=== PATIENT | female | born 1990 | race American Indian/Alaskan Native ===

== ENCOUNTER 2016-11-28 09:51 | Emergency (ER) | payer SELFPAY ==
--- NOTE | 2016-11-28 10:52 | Emergency Department Report ---
Addendum entered and electronically signed by VANCE CAT PA 11/28/16 10:55 : Blank Doc - Documentation Documentation: Medical decision making: Patient seen by provider in triage area. Appropriate protocol activated and patient to main ED to be seen by physician. Original Note: Chief Complaint: Abdominal Pain Stated Complaint: STOMACH PAIN/14 WKS Time Seen by Provider: 11/28/16 10:43 - HPI History of Present Illness: Patient here complains abdominal pain with cramping to left lower pelvic area. She reports that she is 14 weeks . Denies any vaginal bleeding and reported watery clear vaginal discharge. Pain is 5-6 out of 10. She just moved to [place] and she does not have LMSW. No previous ultrasound for care. Denies any vomiting or diarrhea. Denies any fever or chills. Denies any urinary burning frequency or urgency. - ROS Review of Systems: All systems are negative unless stated in HPI above. - Exam Vital Signs: Vital Signs 11/28/16 10:18 Temperature 98.5 F Pulse Rate 86 Respiratory 22 Rate Blood Pressure 132/72 O2 Sat by Pulse 99 Oximetry Physical Exam: General: This is a 26-year-old female well-nourished well-developed nontoxic in appearance. CV: S1, S2. Regular rate and rhythm. GI: TTP LT LQ abdomen. NL bowel sounds. no cva tenderness MSE screening note: Focused history and physical exam performed. Due to findings the following was ordered: ED Disposition for MSE Condition: Stable Instructions: Abdominal Pain (ED)
[2016-11-28 11:17] LABS: Basophils % (Auto) 0.4 % (0.0-1.8); Eosinophils % (Auto) 0.6 % (0.0-4.3); Hematocrit 38.4 % (30.3-42.9); Hemoglobin 12.9 gm/dl (10.1-14.3); Mean Corpuscular HGB Conc 34 % (30-34); Mean Corpuscular Hemoglobin 31 pg (28-32); Mean Corpuscular Volume 91 fl (79-97); Platelet Count 317 K/mm3 (140-440); Red Blood Count 4.22 M/mm3 (3.65-5.03); White Blood Count 10.8 K/mm3 (4.5-11.0)
[2016-11-28 11:41] LABS: Alanine Aminotransferase 8 units/L (7-56); Albumin/Globulin Ratio 1.1 %; Alkaline Phosphatase 107 units/L (35-129); Bilirubin,Total 0.2 mg/dL (0.1-1.2); Blood Urea Nitrogen 6 mg/dL (7-17); Calcium 9.4 mg/dL (8.4-10.2); Carbon Dioxide 23 mmol/L (22-30); Glucose 88 mg/dL (65-100); Lipase 24 units/L (13-60); Total Protein 7.5 g/dL (6.3-8.2)
[2016-11-28 11:42] LABS: Anion Gap 18 mmol/L; Chloride 98.9 mmol/L (98-107); Sodium 136 mmol/L (137-145)
[2016-11-28 12:13] LABS: Bacteria,Urine 1+ /HPF (Negative); Bilirubin,Urine NEG (Negative); Blood,Urine NEG (Negative); Ketones,Urine TR mg/dL (Negative); Leukocyte Esterase,Urine NEG (Negative); Mucus,Urine 1+ /HPF; Nitrite,Urine NEG (Negative); Protein,Urine <15 mg/dL mg/dL (Negative); Urobilinogen,Urine < 2.0 mg/dL (<2.0)
--- NOTE | 2016-11-28 15:35 | Emergency Department Report ---
HPI - General Chief Complaint: Abdominal Pain Time Seen by Provider: 11/28/16 10:43 - HPI HPI: This is a 26-year-old Afro-Algerian female presents to the emergency department with a 2 to three-day history of some lower abdominal cramping and discomfort while . The patient last had her menstrual cycle in late June 2016. She denies any vaginal bleeding, dysuria, vaginal discharge, fever, low back pain. Patient is . She recently moved here from [place] and does not have any insurance and therefore is been noncompliant with any follow-up so far has not been taking any vitamins. She denies any significant complications with her previous and delivery. Otherwise she denies any past medical history. No recent travel or sick contacts at home. Patient is taken some Tylenol for discomfort without much relief. ED Past Medical Hx - Past Medical History Hx Asthma: Yes - Surgical History Past Surgical History?: No - Social History Smoking Status: Never Smoker Substance Use Type: None - Medications Home Medications: Home Medications Medication Instructions Recorded Confirmed Last Taken Type Nitrofurantoin Laurel/M-Cryst 100 mg PO Q12HR #14 capsule 11/28/16 Unknown Rx [Macrobid CAP] Vit No.130/Iron/FA 1 each PO QDAY #30 tablet 11/28/16 Unknown Rx [ Tablet] ED Review of Systems ROS: Stated complaint: STOMACH PAIN/14 WKS Other details as noted in HPI Comment: All other systems reviewed and negative Constitutional: denies: chills, fever Eyes: denies: eye pain, eye discharge, vision change ENT: denies: ear pain, throat pain Respiratory: denies: cough, shortness of breath, wheezing Cardiovascular: denies: chest pain, palpitations Gastrointestinal: abdominal pain. denies: nausea, vomiting Genitourinary: denies: urgency, dysuria, discharge Musculoskeletal: denies: back pain, joint swelling, arthralgia Skin: denies: rash, lesions Neurological: denies: headache, weakness, paresthesias Physical Exam - Physical Exam Vital Signs: Vital Signs 11/28/16 10:18 Temperature 98.5 F Pulse Rate 86 Respiratory 22 Rate Blood Pressure 132/72 O2 Sat by Pulse 99 Oximetry Physical Exam: GENERAL: The patient is well-developed well-nourished. Patient does not appear in any acute distress. HEENT: Normocephalic. Atraumatic. Extraocular motions are intact. Patient has moist mucous membranes. NECK: Supple. Trachea is midline. CHEST/LUNGS: Clear to auscultation. There is no respiratory distress noted. HEART/CARDIOVASCULAR: Regular. There is no tachycardia. There is no gallop rub or murmur. ABDOMEN: Abdomen is soft, nontender. Patient has normal bowel sounds. There is no abdominal distention. Gravid uterus palpable just below the umbilicus. SKIN: There is no rash. There is no edema. There is no diaphoresis. NEURO: The patient is awake, alert, and oriented. The patient is cooperative. The patient has no focal neurologic deficits. The patient has normal speech and gait. MUSCULOSKELETAL: There is no tenderness or deformity. There is no limitation range of motion. There is no evidence of acute injury. ED Course Vital Signs 11/28/16 10:18 Temperature 98.5 F Pulse Rate 86 Respiratory 22 Rate Blood Pressure 132/72 O2 Sat by Pulse 99 Oximetry - Consultations Consultation #1: I spoke with the [facility] education site manager, Dr. Smyth, regarding the patient's RhoGAM status. She says that since the patient is only complaining of abdominal pain and no vaginal bleeding, and she is below 28 weeks, that she does not need the RhoGAM shot at this time. 11/28/16 16:04 ED Medical Decision Making - Lab Data Result diagrams: 11/28/16 10:57 11/28/16 10:57 - Radiology Data Radiology results: report reviewed Transvaginal/ ultrasound shows a live intrauterine at about 19 weeks. - Medical Decision Making This is a 26-year-old female presents to the emergency department with some lower abdominal pain while . Ultrasound shows 19 weeks intrauterine . Patient has a very mild urinary tract infection that will be treated since the patient is in fact . Patient does not have any care as of yet. Spoke with [facility] on-call and patient does not need RhoGAM shot. There is no vaginal bleeding. Patient will be started on Macrobid and vitamins only given multiple referrals for [facility]. She' ll return to the ER with any worsening of her symptoms or any acute distress. - Differential Diagnosis , threatened miscarriage, colitis, appendicitis, UTI Critical Care Time: No Critical care attestation.: If time is entered above; I have spent that time in minutes in the direct care of this critically ill patient, excluding procedure time. ED Disposition Clinical Impression: Qualifiers: Weeks of gestation: 19 weeks Qualified Code(s): Z3A.19 - 19 weeks gestation of Abdominal pain Qualifiers: Abdominal location: lower abdomen, unspecified Qualified Code(s): R10.30 - Lower abdominal pain, unspecified UTI (urinary tract infection) Qualifiers: Urinary tract infection type: acute cystitis Hematuria presence: without hematuria Qualified Code(s): N30.00 - Acute cystitis without hematuria Disposition: DISCHARGED TO HOME OR SELFCARE Is pt being admited?: No Does the pt Need Aspirin: No Condition: Stable Instructions: Abdominal Pain (ED), (ED), Urinary Tract Infection in Women (ED) Additional Instructions: Please follow up with one of the [facility] physicians that I have given her a referral to. Start taking vitamins. Take the antibiotics as prescribed. You can take Tylenol every 4 hours using weight-based dosing as needed for discomfort. Otherwise do not take any medications that are not prescribed by a physician. Return to the emergency department with any vaginal bleeding, worsening of your abdominal pain, intractable fever or vomiting, or any acute distress. Prescriptions: Nitrofurantoin Laurel/M-Cryst [Macrobid CAP] 100 mg PO Q12HR #14 capsule Vit No.130/Iron/FA [ Tablet] 1 each PO QDAY #30 tablet Referrals: JOSE MARTINEZ MD [Primary Care Provider] - 3-5 Days NAIF AVILA MD [Staff Physician] - 3-5 Days ELIN FOX MD [Staff Physician] - 3-5 Days INGRIS LIPSCOMB MD [Staff Physician] - 3-5 Days Time of Disposition: 16:18
[2016-11-28 15:44] VITALS: BP 114/69
--- NOTE | 2016-11-28 15:47 | Ultrasound Report ---
OB ULTRASOUND: Transabdominal imaging. Gestation: [email or web address] Position: cephalic Amniotic Fluid: WNL < 24 weeks, subjective Placenta: posterior Placental Grade: 0 Heart Rate: 158 BPM Cervical length: 2.9 cm (Normal > 3 cm) NEUROANATOMY VISUALIZED: Choroid Plexus Cisterna Magnum Cerebellum Lateral Ventricle ANATOMY VISUALIZED: Stomach Kidneys Bladder Diaphragm 4 Chamber Heart Heart 3 Vessel Cord Abd. Cord Insert SPINE VISUALIZED: Limited spine due to position BPD: 4.7 cm = 20 w 2 d HC: 17.7 cm = 20 w 1 d AC: 14.3 cm = 19 w 5 d FL: 2.8 cm = 18 w 3 d HC/AC Ratio: 1.24 Cephalic Index: 85.8 Estimated Weight: 280 grams LMP: 07-16-16 Clinical age = 19 w 2 d EDC: 04-22-17 US Gest. Age = 19 w 5 d EDC: 04-19-17 COMMENT: No gestational abnormality identified.
[2016-11-28] MEDS ORDERED: MACROBID PO ONE (16:04)
== END 2016-11-28 16:25 | disposition home or self-care (01) ==
LOC: ED 09:51
DX: O26.891 Other specified pregnancy related conditions, first trimester (principal); O23.32 Infections of other parts of urinary tract in pregnancy, second trimester; R10.30 Lower abdominal pain, unspecified; N30.00 Acute cystitis without hematuria; Z3A.19 19 weeks gestation of pregnancy; J45.909 Unspecified asthma, uncomplicated; Z88.8 Allergy status to other drugs, medicaments and biological substances
CPT/HCPCS: 36415; 76805; 80053; 81001; 83690; 84702; 85025; 86850; 86900; 86901

== ENCOUNTER 2017-04-21 08:57 | Inpatient (IN) | payer MEDICAID ==
[2017-04-21] MEDS ORDERED: LACTATED RINGERS 1,000 ML ONE (10:41)
[2017-04-21] MEDS ORDERED: ZOFRAN IV PRN (12:40)
[2017-04-21] MEDS ORDERED: PHENERGAN PO PRN ×2 (12:40→22:40)
[2017-04-21] MEDS ORDERED: XYLOCAINE 2% INFILTRATI ONE (12:40)
[2017-04-21] MEDS ORDERED: SUBLIMAZE IV PRN (12:40)
[2017-04-21] MEDS ORDERED: ePHEDrine SULFATE IV PRN ×2 (12:40→21:16)
[2017-04-21] MEDS ORDERED: BRETHINE SUB-Q PRN (12:40)
[2017-04-21] MEDS ORDERED: MINERAL OIL PO PRN (12:40)
[2017-04-21] MEDS ORDERED: BRETHINE IVP PRN (12:40)
[2017-04-21] MEDS ORDERED: STADOL IV PRN (12:40)
[2017-04-21] MEDS ORDERED: NARCAN 0.4 MG/1 ML IV PRN (12:40)
--- NOTE | 2017-04-21 12:40 | History and Physical Report ---
History of Present Illness Date of examination: 04/21/17 Date of admission: 04/21/17 08:57 Chief complaint: Induction of labor History of present illness: Pt is a 26yo BF EDC 04/13/17; EGA 41 1/7 weeks presents for induction of labor due to postdates. She received care at 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 records are available and GBS is Positive. Past History Past Medical History: no pertinent history Past Surgical History: no surgical history CUSTOMER MANAGER History: herpes Family/Genetic History: none Social history: no significant social history, single - Obstetrical History Expected Date of Delivery: 04/13/17 Actual Gestation: 41 Week(s) 1 Day(s) : 2 Medications and Allergies Allergies Allergy/AdvReac Type Severity Reaction Status Date / Time amoxicillin trihydrate Allergy Unknown Verified 11/28/16 16:16 [From Augmentin] budesonide [From Pulmicort] Allergy Unknown Verified 11/28/16 16:16 potassium clavulanate Allergy Unknown Verified 11/28/16 16:16 [From Augmentin] Home Medications Medication Instructions Recorded Confirmed Last Taken Type Nitrofurantoin [place]/M-Cryst 100 mg PO Q12HR #14 capsule 11/28/16 Unknown Rx [Macrobid CAP] Vit No.130/Iron/FA 1 each PO QDAY #30 tablet 11/28/16 Unknown Rx [ Tablet] Review of Systems All systems: negative - Vital Signs Vital signs: Vital Signs Pulse Pulse Ox 95 H 98 04/21/17 10:47 04/21/17 10:47 Temp Pulse Resp BP Pulse Ox 87 116/70 99 04/21/17 11:22 04/21/17 10:50 04/21/17 11:22 - Physical Exam Breasts: Positive: deferred Cardiovascular: Regular rate Lungs: Positive: Clear to auscultation Abdomen: Positive: normal appearance Genitourinary (Female): Positive: normal external genitalia. Negative: perineal /vulvar lesions Uterus: Positive: enlarged Extremities: Positive: normal - Obstetrical FHR: category 1 Uterine Contraction Monitor Mode: External Cervical Dilatation: 3 Cervical Effacement Percentage: 50 station: -3 Uterine Contraction Pattern: Irregular Uterine Tone Measurement Phase: Contraction Uterine Contraction Intensity: Mild Results Result Diagrams: 04/21/17 10:25 All other labs normal. Assessment and Plan - Patient Problems (1) 41 weeks gestation of Onset Date: 04/21/17 Current Visit: Yes Status: Acute Plan to address problem: A: IUP @ 41 1/7 weeks GBS positive P: Admit to L&D for pitocin induction of labor IV Clindamycin Expectant vaginal delivery
[2017-04-21] MEDS ORDERED: PITOCin/NS 30 UNIT/500ML 30 UNITS/500 ML BAG IV SCH ×2 (13:00)
[2017-04-21] MEDS ORDERED: LACTATED RINGERS 1,000 ML IV SCH (13:00)
[2017-04-21] MEDS ORDERED: PITOCin/NS 20 UNIT/1000ML DRIP 20 UNITS/1,000 ML BAG IV SCH ×2 (13:00→23:00)
[2017-04-21 13:45] LABS: Hematocrit 31.3 % (30.3-42.9); Hemoglobin 10.4 gm/dl (10.1-14.3); Mean Corpuscular HGB Conc 33 % (30-34); Mean Corpuscular Hemoglobin 30 pg (28-32); Mean Corpuscular Volume 91 fl (79-97); Platelet Count 273 K/mm3 (140-440); Red Blood Count 3.46 M/mm3 (3.65-5.03); White Blood Count 10.6 K/mm3 (4.5-11.0)
[2017-04-21] MEDS ORDERED: CLEOCIN 900 MG/50 mL 900 MG/50 ML BAG IV SCH (14:00)
[2017-04-21] MEDS ORDERED: ePHEDrine SULFATE ONE (20:27)
[2017-04-21] MEDS ORDERED: fentaNYL-BUPIV 2 MCG/ML-0.125% 200 MCG/100 ML BAG EPIDURAL ONE (21:12)
[2017-04-21] MEDS ORDERED: NARCAN 2 MG/2 ML IV PRN (21:16)
--- NOTE | 2017-04-21 21:16 | Anesthesia Consultation ---
Anesthesia Consult and Med Hx Date of service: 04/21/17 - Airway Anesthetic Teeth Evaluation: Good ROM Head & Neck: Adequate Mental/Hyoid Distance: Adequate Mallampati Class: Class II Intubation Access Assessment: Probably Good - Pulmonary Exam CTA: Yes - Cardiac Exam Cardiac Exam: RRR - Pre-Operative Health Status ASA Pre-Surgery Classification: ASA2 Proposed Anesthetic Plan: Epidural - Pulmonary Hx Asthma: Yes COPD: No - Cardiovascular System Hx Hypertension: No - Central Nervous System Hx Seizures: No Hx Psychiatric Problems: No - Endocrine Hx Renal Disease: No Hx End Stage Renal Disease: No Hx Hypothyroidism: No Hx Hyperthyroidism: No - Hematic Hx Anemia: No Hx Sickle Cell Disease: No - Other Systems Hx Alcohol Use: No
--- NOTE | 2017-04-21 21:24 | Progress Note ---
Assessment and Plan - Patient Problems (1) 41 weeks gestation of Onset Date: 04/21/17 Current Visit: Yes Status: Acute Plan to address problem: A: IUP @ 41 1/7 weeks GBS positive P: Continue with pitocin induction of labor Expectant vaginal delivery Subjective - Subjective Date of service: 04/21/17 Principal diagnosis: IUP @ 41 1/7 weeks Interval history: Pt is a 26yo BF EDC 04/13/17; EGA 41 1/7 weeks presently on pitocin 22mu/ mins and gordo q 2-3 mins with epidural in place. No complaints. Patient reports: loss of fluid (AROM), movement normal, contractions, no new complaints, no vaginal bleeding Objective - Vital Signs Vital Signs: Vital Signs - 12hr 04/21/17 04/21/17 04/21/17 10:47 10:50 10:52 Temperature Pulse Rate 95 H 83 86 Pulse Rate [ Right From Monitor] Respiratory Rate Blood Pressure 116/70 Blood Pressure [Left Arm] O2 Sat by Pulse 98 99 Oximetry 04/21/17 04/21/17 04/21/17 10:57 11:02 11:07 Temperature Pulse Rate 85 102 H 86 Pulse Rate [ Right From Monitor] Respiratory Rate Blood Pressure Blood Pressure [Left Arm] O2 Sat by Pulse 98 99 99 Oximetry 04/21/17 04/21/17 04/21/17 11:12 11:17 11:22 Temperature Pulse Rate 96 H 89 87 Pulse Rate [ Right From Monitor] Respiratory Rate Blood Pressure Blood Pressure [Left Arm] O2 Sat by Pulse 99 99 99 Oximetry 04/21/17 04/21/17 04/21/17 14:14 16:01 18:10 Temperature 98.1 F Pulse Rate 74 Pulse Rate [ Right From Monitor] Respiratory 18 16 Rate Blood Pressure 128/75 Blood Pressure 125/68 [Left Arm] O2 Sat by Pulse Oximetry 04/21/17 04/21/17 04/21/17 19:09 19:14 19:19 Temperature Pulse Rate 82 68 81 Pulse Rate [ Right From Monitor] Respiratory Rate Blood Pressure 134/87 Blood Pressure [Left Arm] O2 Sat by Pulse 100 99 99 Oximetry 04/21/17 04/21/17 04/21/17 19:24 19:29 19:34 Temperature Pulse Rate 144 H 89 Pulse Rate [ Right From Monitor] Respiratory Rate Blood Pressure Blood Pressure [Left Arm] O2 Sat by Pulse 99 100 99 Oximetry 04/21/17 04/21/17 04/21/17 19:38 19:39 19:42 Temperature 97.0 F L Pulse Rate 94 H 81 Pulse Rate [ 84 Right From Monitor] Respiratory 18 Rate Blood Pressure 125/94 Blood Pressure 125/94 [Left Arm] O2 Sat by Pulse 99 100 Oximetry 04/21/17 04/21/17 04/21/17 19:44 19:49 19:54 Temperature Pulse Rate 86 79 82 Pulse Rate [ Right From Monitor] Respiratory Rate Blood Pressure Blood Pressure [Left Arm] O2 Sat by Pulse 99 99 99 Oximetry 04/21/17 04/21/17 04/21/17 19:59 20:04 20:09 Temperature Pulse Rate 77 86 75 Pulse Rate [ Right From Monitor] Respiratory 18 Rate Blood Pressure 135/76 Blood Pressure [Left Arm] O2 Sat by Pulse 98 99 99 Oximetry 04/21/17 04/21/17 04/21/17 20:10 20:14 20:19 Temperature Pulse Rate 84 78 77 Pulse Rate [ Right From Monitor] Respiratory Rate Blood Pressure Blood Pressure [Left Arm] O2 Sat by Pulse 90 97 92 Oximetry 04/21/17 04/21/17 04/21/17 20:24 20:25 20:29 Temperature Pulse Rate 83 81 90 Pulse Rate [ Right From Monitor] Respiratory Rate Blood Pressure Blood Pressure [Left Arm] O2 Sat by Pulse 97 92 97 Oximetry 04/21/17 04/21/17 04/21/17 20:30 20:34 20:36 Temperature Pulse Rate 76 84 81 Pulse Rate [ Right From Monitor] Respiratory Rate Blood Pressure Blood Pressure [Left Arm] O2 Sat by Pulse 92 96 89 Oximetry 04/21/17 04/21/17 04/21/17 20:39 20:44 20:49 Temperature Pulse Rate 81 70 90 Pulse Rate [ Right From Monitor] Respiratory Rate Blood Pressure 149/88 Blood Pressure [Left Arm] O2 Sat by Pulse 97 91 88 Oximetry 04/21/17 04/21/17 04/21/17 20:54 20:56 20:58 Temperature Pulse Rate 83 63 58 L Pulse Rate [ Right From Monitor] Respiratory Rate Blood Pressure 140/63 140/67 138/73 Blood Pressure [Left Arm] O2 Sat by Pulse 100 Oximetry 04/21/17 04/21/17 04/21/17 20:59 21:00 21:02 Temperature Pulse Rate 75 74 63 Pulse Rate [ Right From Monitor] Respiratory Rate Blood Pressure 144/73 144/73 Blood Pressure [Left Arm] O2 Sat by Pulse 100 Oximetry 04/21/17 04/21/17 04/21/17 21:04 21:06 21:08 Temperature Pulse Rate 74 73 72 Pulse Rate [ Right From Monitor] Respiratory Rate Blood Pressure 139/67 125/66 122/61 Blood Pressure [Left Arm] O2 Sat by Pulse 100 Oximetry 04/21/17 04/21/17 21:09 21:14 Temperature Pulse Rate 93 H 67 Pulse Rate [ Right From Monitor] Respiratory Rate Blood Pressure 128/67 Blood Pressure [Left Arm] O2 Sat by Pulse 99 99 Oximetry - Exam Abdomen: Present: normal appearance, soft FHR: category 1 Uterine Contraction Monitor Mode: External Cervical Dilatation: 7 Cervical Effacement Percentage: 100 station: -1 Uterine Contraction Pattern: Regular Uterine Tone Measurement Phase: Contraction Uterine Contraction Intensity: Moderate - Labs Labs: Abnormal Labs 04/21/17 10:25 RBC 3.46 L Laboratory Results - last 24 hr 04/21/17 04/21/17 10:25 10:25 WBC 10.6 RBC 3.46 L Hgb 10.4 Hct 31.3 MCV 91 MCH 30 MCHC 33 RDW 15.0 Plt Count 273 Blood Type AB NEGATIVE Antibody Screen TNR MAGGIE Antibody Screen Negative
[2017-04-21] MEDS ORDERED: fentaNYL-BUPIV 2 MCG/ML-0.125% 200 MCG/100 ML BAG EPIDURAL SCH (22:00)
--- NOTE | 2017-04-21 22:39 | Procedure Note ---
OB Delivery Note - Delivery Date of Delivery: 04/21/17 Surgeon: MANISHA HYDE Estimated blood loss: 200cc - Vaginal Delivery presentation: vertex Delivery position: OA Intrapartum events: PROM->1hr before delivery Delivery induction: oxytocin Delivery augmentation: rupture of membranes, pitocin Delivery monitor: external FHT, external uterine Route of delivery: Delivery placenta: spontaneous Delivery cord: nuchal cord (x1), 3 umbilical vessels Episiotomy: none Delivery laceration: none Anesthesia: epidural Delivery comments: Infant delivered OA, nuchal cord x 1 reduced and infant placed on Mom's chest for [id number] bonding and delayed cord clamping. - Infant A at 1 minute: 8 at 5 minutes: 9 Gender: Male ([id number])
[2017-04-21] MEDS ORDERED: MILK OF MAGNESIA PO PRN (22:40)
[2017-04-21] MEDS ORDERED: PHENERGAN PR PRN (22:40)
[2017-04-21] MEDS ORDERED: PERCOCET 5/325 PO PRN (22:40)
[2017-04-21] MEDS ORDERED: TUCKS PAD TP PRN (22:40)
[2017-04-21] MEDS ORDERED: LANSINOH TP PRN (22:40)
[2017-04-21] MEDS ORDERED: DULCOLAX PR PRN (22:40)
[2017-04-21] MEDS ORDERED: BENADRYL PO PRN (22:40)
[2017-04-21] MEDS ORDERED: TYLENOL PO PRN (22:40)
[2017-04-21] MEDS ORDERED: SODIUM CHLORIDE FLUSH SYRINGE 10 ML IV PRN (23:00)
[2017-04-22] MEDS: MOTRIN PO SCH ×4 (00:17→16:44)
[2017-04-22] MEDS: ZOFRAN IV PRN ×2 (00:17→22:15)
[2017-04-22] MEDS: NORCO 5/325 PO PRN ×2 (08:38→21:02)
[2017-04-22] MEDS: PRENATAL VITAMIN PO SCH ×2 (08:38→14:52)
[2017-04-22] MEDS: FEOSOL PO SCH ×3 (08:38→21:02)
[2017-04-22] MEDS: SENOKOT S PO SCH ×3 (08:39→21:02)
--- NOTE | 2017-04-22 08:41 | Progress Note ---
Assessment and Plan - Patient Problems (1) 41 weeks gestation of Onset Date: 04/21/17 Current Visit: Yes Status: Resolved (2) (normal spontaneous vaginal delivery) Onset Date: 04/22/17 Current Visit: Yes Status: Resolved Plan to address problem: A: S/P - PPD #1 Doing well Asymptomatic anemia - stable P: May go home tomorrow Subjective - Subjective Date of service: 04/22/17 Principal diagnosis: s/p - PPD #1 Interval history: Pt is feeling well without complaints. Bleeding improved. Patient reports: appetite normal, voiding normally, pain well controlled, flatus , ambulating normally : doing well, bottle feeding Objective - Vital Signs Latest vital signs: Vital Signs Temp Pulse Pulse Resp BP BP Pulse Ox 04/22/17 08:28 98.4 F 64 20 110/69 04/22/17 04:55 98 F 62 20 119/88 04/22/17 04:49 16 04/22/17 00:55 97.6 F 68 18 132/76 04/22/17 00:03 77 121/74 04/21/17 23:48 84 130/80 04/21/17 23:33 62 127/78 04/21/17 23:18 66 66 20 125/70 125/70 04/21/17 23:05 74 20 124/71 04/21/17 23:04 74 124/71 04/21/17 22:49 104 H 104 H 22 139/67 139/67 04/21/17 22:37 98.8 F 78 52 L 20 132/61 148/78 04/21/17 22:15 61 121/77 04/21/17 21:46 61 122/74 04/21/17 21:29 69 100 04/21/17 21:24 69 99 04/21/17 21:19 72 100 04/21/17 21:14 67 128/67 99 04/21/17 21:09 93 H 99 04/21/17 21:08 72 122/61 04/21/17 21:06 73 125/66 04/21/17 21:04 74 139/67 100 04/21/17 21:02 63 144/73 04/21/17 21:00 74 144/73 04/21/17 20:59 75 100 04/21/17 20:58 58 L 138/73 04/21/17 20:56 63 140/67 04/21/17 20:54 83 140/63 100 04/21/17 20:49 90 88 04/21/17 20:44 70 91 04/21/17 20:39 81 149/88 97 04/21/17 20:36 81 89 04/21/17 20:34 84 96 04/21/17 20:30 76 92 04/21/17 20:29 90 97 04/21/17 20:25 81 92 04/21/17 20:24 83 97 04/21/17 20:19 77 92 04/21/17 20:14 78 97 04/21/17 20:10 84 90 04/21/17 20:09 75 135/76 99 04/21/17 20:04 86 18 99 04/21/17 19:59 77 98 04/21/17 19:54 82 99 04/21/17 19:49 79 99 04/21/17 19:44 86 99 04/21/17 19:42 97.0 F L 84 18 125/94 100 04/21/17 19:39 81 99 04/21/17 19:38 94 H 125/94 04/21/17 19:34 89 99 04/21/17 19:29 100 04/21/17 19:24 144 H 99 04/21/17 19:19 81 99 04/21/17 19:14 68 99 04/21/17 19:09 82 134/87 100 04/21/17 18:10 16 04/21/17 16:01 74 128/75 04/21/17 14:14 98.1 F 18 125/68 04/21/17 11:22 87 99 04/21/17 11:17 89 99 04/21/17 11:12 96 H 99 04/21/17 11:07 86 99 04/21/17 11:02 102 H 99 04/21/17 10:57 85 98 04/21/17 10:52 86 99 04/21/17 10:50 83 116/70 04/21/17 10:47 95 H 98 Intake and Output 04/21/17 04/22/17 04/22/17 22:59 06:59 14:59 Intake Total 360 360 Output Total 350 400 Balance 10 -40 Intake: Oral 360 Intake, Free Water 360 Output: Urine 350 400 Void 350 400 Other: Total, Intake Amount 360 Total, Output Amount 350 400 Estimated Blood Loss 200 - Exam Breasts: Present: deferred Cardiovascular: Present: Regular rate Lungs: Present: Clear to auscultation Abdomen: Present: normal appearance, soft Uterus: Present: normal, firm, fundal height below umbilicus Extremities: Present: normal - Labs Labs: Abnormal lab results 04/21/17 Range/Units 10:25 RBC 3.46 L (3.65-5.03) M/mm3 Laboratory Tests 04/21/17 04/21/17 04/22/17 10:25 10:25 10:32 WBC 10.6 RBC 3.46 L Hgb 10.4 9.7 L Hct 31.3 29.3 L MCV 91 MCH 30 MCHC 33 RDW 15.0 Plt Count 273 Blood Type AB NEGATIVE Antibody Screen TNR MAGGIE Antibody Screen Negative Screen 04/22/17 10:32 WBC RBC Hgb Hct MCV MCH MCHC RDW Plt Count Blood Type AB NEGATIVE Antibody Screen TNR MAGGIE Antibody Screen Negative Screen TNR
[2017-04-22] MEDS: COLACE PO SCH ×2 (10:58→21:02)
[2017-04-22 11:26] LABS: Hematocrit 29.3 % (30.3-42.9); Hemoglobin 9.7 gm/dl (10.1-14.3)
[2017-04-22] MEDS ORDERED: FLUARIX QUAD 2016-2017(36 MOS+) IM ONE (12:00)
--- NOTE | 2017-04-22 14:20 | Discharge Summary ---
Providers - Providers Date of Admission: 04/21/17 08:57 Date of discharge: 04/23/17 Attending physician: MANISHA HYDE Primary care physician: MANISHA HYDE Hospitalization Reason for admission: induction of labor, IUP at term Delivery: Episiotomy: none Laceration: none Other procedures: none complications: none Discharge diagnosis: IUP at term delivered [place] baby: male Hospital course: Unremarkable. Condition at discharge: Good Disposition: DISCHARGED TO HOME OR SELFCARE - Discharge Diagnoses (1) 41 weeks gestation of Status: Resolved (2) (normal spontaneous vaginal delivery) Status: Resolved Plan - Discharge Medications Prescriptions: Ferrous Sulfate [Feosol 325 MG tab] 325 mg PO BID #60 tablet Ibuprofen [Motrin 600 MG tab] 600 mg PO Q6HR #30 tablet Vit-Fe Fumar-FA [ Vitamin] 1 each PO QDAY #30 tablet - Provider Discharge Summary Activity: routine, no sex for 6 weeks, no heavy lifting 4 weeks, no strenuous exercise Diet: routine Instructions: routine Additional instructions: [] Smoking cessation referral if applicable(refer to patient education folder for contact #) [] Refer to [facility]'s [facility] Booklet Call your doctor immediately for: * Fever > 100.5 * Heavy vaginal bleeding ( >1 pad per hour) * Severe persistent headache * Shortness of breath * Reddened, hot, painful area to leg or breast * Drainage or odor from incision. * Keep incision clean and dry at all times and follow doctor's instructions regarding bathing/showering - Follow up plan Follow up: MANISHA HYDE MD [Primary Care Provider] - 6 Weeks
[2017-04-22] MEDS ORDERED: M-M-R II VACCINE SUB-Q ONE (22:40)
[2017-04-23] MEDS: MOTRIN PO SCH ×3 (05:21→12:00)
[2017-04-23] MEDS ORDERED: BOOSTRIX IM ONE (06:00)
[2017-04-23] MEDS: FEOSOL PO SCH (11:14)
[2017-04-23] MEDS: COLACE PO SCH (11:14)
[2017-04-23] MEDS: PRENATAL VITAMIN PO SCH (11:14)
[2017-04-23 17:56] VITALS: BP 120/80
== END 2017-04-23 17:55 | disposition home or self-care (01) | DRG 775 ==
LOC: LD 08:57 → OB 04-22 00:52
PROVIDERS: ADMIT Obstetrics & Gynecology; ATTEND Obstetrics & Gynecology
PROC: 10E0XZZ Delivery of Products of Conception, External Approach (ICD-10-PCS; principal; 2017-04-21)
PROC: 30233S1 Transfusion of Nonautologous Globulin into Peripheral Vein, Percutaneous Approach (ICD-10-PCS; 2017-04-21)
PROC: 3E033VJ Introduction of Other Hormone into Peripheral Vein, Percutaneous Approach (ICD-10-PCS; 2017-04-21)
PROC: 00HU33Z Insertion of Infusion Device into Spinal Canal, Percutaneous Approach (ICD-10-PCS; 2017-04-21)
PROC: 3E0R3CZ (ICD-10-PCS; 2017-04-21)
DX: O48.0 Post-term pregnancy (principal); O69.81X0 Labor and delivery complicated by cord around neck, without compression, not applicable or unspecified; O99.824 Streptococcus B carrier state complicating childbirth; O99.52 Diseases of the respiratory system complicating childbirth; J45.909 Unspecified asthma, uncomplicated; O42.02 Full-term premature rupture of membranes, onset of labor within 24 hours of rupture; O90.81 Anemia of the puerperium; D64.9 Anemia, unspecified; Z3A.41 41 weeks gestation of pregnancy; Z37.0 Single live birth; Z88.8 Allergy status to other drugs, medicaments and biological substances
CPT/HCPCS: 36415; 85014; 85018; 85027; 85460; 85461; 86850; 86900; 86901; 90471; 90686; 90715; G0008; J0595; J2405; J2590; J2790; J3010; J7120

== ENCOUNTER 2020-08-29 23:22 | Emergency (ER) | payer MEDICAID ==
[2020-08-30 00:38] LABS: Basophils # (Auto) 0.1 K/mm3 (0.0-0.1); Basophils % (Auto) 0.8 % (0.0-1.8); Eosinophils % (Auto) 0.6 % (0.0-4.3); Hematocrit 38.9 % (30.3-42.9); Hemoglobin 13.1 gm/dl (10.1-14.3); Lymphocytes # (Auto) 1.6 K/mm3 (1.2-5.4); Lymphocytes % (Auto) 22.2 % (13.4-35.0); Mean Corpuscular HGB Conc 34 % (30-34); Mean Corpuscular Volume 88 fl (79-97); Monocytes # (Auto) 0.3 K/mm3 (0.0-0.8); Monocytes % (Auto) 4.7 % (0.0-7.3); Platelet Count 346 K/mm3 (140-440); Red Cell Distribution Width 14.6 % (13.2-15.2)
[2020-08-30 00:58] LABS: Alanine Aminotransferase 15 units/L (7-56); Albumin 4.4 g/dL (3.9-5); BUN/Creatinine Ratio 19; Blood Urea Nitrogen 15 mg/dL (7-17); Calcium 9.4 mg/dL (8.4-10.2); Hemolysis Index 3
[2020-08-30 01:21] VITALS: BP 137/98
== END 2020-08-30 02:30 | disposition left against medical advice (07) ==
LOC: ED 23:22
DX: N94.6 Dysmenorrhea, unspecified (principal); Z53.21 Procedure and treatment not carried out due to patient leaving prior to being seen by health care provider
CPT/HCPCS: 36415; 80053; 84703; 85025

== ENCOUNTER 2020-08-30 09:05 | Emergency (ER) | payer SELFPAY ==
[2020-08-30] MEDS ORDERED: KETOROLAC 30 MG/1 ML INJ IV ONE (10:19)
[2020-08-30] MEDS ORDERED: SODIUM CHLORIDE 0.9% 1000 ML 1,000 ML IV ONE (10:19)
[2020-08-30] MEDS ORDERED: ONDANSETRON 4 MG/2 ML INJ IV ONE (10:19)
[2020-08-30] MEDS ORDERED: diphenhydrAMINE 50 MG/ML VIAL IV ONE ×2 (10:20→13:48)
--- NOTE | 2020-08-30 10:47 | Emergency Department Report ---
ED General Adult HPI - General Chief complaint: Abdominal Pain Stated complaint: Endometriosis Time Seen by Provider: 08/30/20 10:14 Source: patient Mode of arrival: Ambulatory Limitations: No Limitations - History of Present Illness Initial comments: Patient is a 29-year-old female presents emergency room with complaints of generalized abdominal cramping that began 2 days ago. She has associated nausea vomiting. She states that she is unable to tolerate p.o. intake. Patient states that she has a past medical history of endometriosis and has not seen a MORTGAGE PROFESSIONAL in 3 years. She attributes her symptoms to her endometriosis. She denies any diarrhea, fever, hematochezia, hematemesis, melena, pus in the stool, dysuria, urinary frequency, dark urine, odor to the urine, vaginal discharge or irritation. She states that she is having normal bowel movements and had a bowel movement yesterday. She denies any other past medical history. She has an allergy to Augmentin and budesonide. She states her last menstrual cycle August 07. - Related Data Previous Rx's Medication Instructions Recorded Last Taken Type Nitrofurantoin Kinney/M-Cryst 100 mg PO Q12HR #14 capsule 11/28/16 04/08/17 20:00 Rx [Macrobid CAP] 1 Qdaily Vit No.130/Iron/Folic 1 each PO QDAY #30 tablet 11/28/16 2 Weeks Ago Rx [ Tablet] ~04/09/17 1 Ferrous Sulfate [Feosol 325 MG tab] 325 mg PO BID #60 tablet 04/22/17 Unknown Rx Ibuprofen [Motrin 600 MG tab] 600 mg PO Q6HR #30 tablet 04/22/17 Unknown Rx Vit-Fe Fumar-FA [ 1 each PO QDAY #30 tablet 04/22/17 Unknown Rx Vitamin] Acetaminophen/Codeine [Tylenol 1 tab PO Q6H PRN #7 tab 08/30/20 Unknown Rx /Codeine # 3 tab] Ciprofloxacin HCl [Ciprofloxacin 500 mg PO BID 7 Days #14 tab 08/30/20 Unknown Rx TAB] Promethazine [Phenergan] 25 mg PO Q8HR PRN #7 tab 08/30/20 Unknown Rx metroNIDAZOLE [Flagyl] 500 mg PO BID 7 Days #14 tab 08/30/20 Unknown Rx Allergies Allergy/AdvReac Type Severity Reaction Status Date / Time amoxicillin trihydrate Allergy Unknown Verified 11/28/16 16:16 [From Augmentin] budesonide [From Pulmicort] Allergy Unknown Verified 11/28/16 16:16 potassium clavulanate Allergy Unknown Verified 11/28/16 16:16 [From Augmentin] ED Review of Systems ROS: Stated complaint: Endometriosis Other details as noted in HPI Comment: All other systems reviewed and negative ED Past Medical Hx - Past Medical History Hx Hypertension: No Hx Diabetes: No Hx Deep Vein Thrombosis: No Hx Renal Disease: No Hx Sickle Cell Disease: No Hx Seizures: No Hx Asthma: Yes Hx COPD: No Hx HIV: No Additional medical history: endometriosis, ovarian cyst - Surgical History Past Surgical History?: No - Social History Smoking Status: Current Every Day Smoker Substance Use Type: Alcohol, Marijuana - Medications Home Medications: Home Medications Medication Instructions Recorded Confirmed Last Taken Type Nitrofurantoin Kinney/M-Cryst 100 mg PO Q12HR #14 capsule 11/28/16 04/23/17 04/08/17 20:00 Rx [Macrobid CAP] 1 Qdaily Vit No.130/Iron/Folic 1 each PO QDAY #30 tablet 11/28/16 04/23/17 2 Weeks Ago Rx [ Tablet] ~04/09/17 1 Ferrous Sulfate [Feosol 325 MG tab] 325 mg PO BID #60 tablet 04/22/17 Unknown Rx Ibuprofen [Motrin 600 MG tab] 600 mg PO Q6HR #30 tablet 04/22/17 Unknown Rx Vit-Fe Fumar-FA [ 1 each PO QDAY #30 tablet 04/22/17 Unknown Rx Vitamin] Acetaminophen/Codeine [Tylenol 1 tab PO Q6H PRN #7 tab 08/30/20 Unknown Rx /Codeine # 3 tab] Ciprofloxacin HCl [Ciprofloxacin 500 mg PO BID 7 Days #14 tab 08/30/20 Unknown Rx TAB] Promethazine [Phenergan] 25 mg PO Q8HR PRN #7 tab 08/30/20 Unknown Rx metroNIDAZOLE [Flagyl] 500 mg PO BID 7 Days #14 tab 08/30/20 Unknown Rx ED Physical Exam - General Limitations: No Limitations General appearance: alert, in no apparent distress - Head Head exam: Present: atraumatic, normocephalic - Eye Eye exam: Present: normal appearance - ENT ENT exam: Present: mucous membranes moist - Respiratory Respiratory exam: Present: normal lung sounds bilaterally. Absent: respiratory distress, wheezes, rales, rhonchi, stridor, chest wall tenderness, accessory muscle use, decreased breath sounds, prolonged expiratory - Cardiovascular Cardiovascular Exam: Present: regular rate, normal rhythm, normal heart sounds. Absent: systolic murmur, diastolic murmur, rubs, gallop - GI/Abdominal GI/Abdominal exam: Present: soft, tenderness (mild generalized), normal bowel sounds. Absent: distended, guarding, rebound, rigid - Neurological Exam Neurological exam: Present: alert, oriented X3 - Psychiatric Psychiatric exam: Present: normal affect, normal mood - Skin Skin exam: Present: warm, dry, intact ED Course Vital Signs 08/30/20 08/30/20 09:14 12:14 Temperature 98.4 F Pulse Rate 79 Respiratory 20 16 Rate Blood Pressure 158/122 O2 Sat by Pulse 100 Oximetry ED Medical Decision Making - Lab Data Result diagrams: 08/30/20 10:41 08/30/20 10:41 Lab Results 08/30/20 08/30/20 08/30/20 Range/Units 10:41 10:41 Unknown WBC 16.9 H (4.5-11.0) K/mm3 RBC 4.31 (3.65-5.03) M/mm3 Hgb 12.7 (10.1-14.3) gm/dl Hct 37.8 (30.3-42.9) % MCV 88 (79-97) fl MCH 29 (28-32) pg MCHC 34 (30-34) % RDW 14.1 (13.2-15.2) % Plt Count 327 (140-440) K/mm3 Add Manual Diff Complete Total Counted 100 Seg Neutrophils % [employer] Seg Neuts % (Manual) 92.0 H (40.0-70.0) % Band Neutrophils % 0 % Lymphocytes % (Manual) 7.0 L (13.4-35.0) % Reactive Lymphs % (Man) 0 % Monocytes % (Manual) 1.0 (0.0-7.3) % Eosinophils % (Manual) 0 (0.0-4.3) % Basophils % (Manual) 0 (0.0-1.8) % Metamyelocytes % 0 % Myelocytes % 0 % Promyelocytes % 0 % Blast Cells % 0 % Nucleated RBC % Not Reportable Seg Neutrophils # Man 15.5 H (1.8-7.7) K/mm3 Band Neutrophils # 0.0 K/mm3 Lymphocytes # (Manual) 1.2 (1.2-5.4) K/mm3 Abs React Lymphs (Man) 0.0 K/mm3 Monocytes # (Manual) 0.2 (0.0-0.8) K/mm3 Eosinophils # (Manual) 0.0 (0.0-0.4) K/mm3 Basophils # (Manual) 0.0 (0.0-0.1) K/mm3 Metamyelocytes # 0.0 K/mm3 Myelocytes # 0.0 K/mm3 Promyelocytes # 0.0 K/mm3 Blast Cells # 0.0 K/mm3 WBC Morphology Not Reportable Hypersegmented Neuts Not Reportable Hyposegmented Neuts Not Reportable Hypogranular Neuts Not Reportable Smudge Cells Not Reportable Toxic Granulation Not Reportable Toxic Vacuolation Not Reportable Dohle Bodies Not Reportable Pelger-Huet Anomaly Not Reportable Katie Rods Not Reportable Platelet Estimate Consistent w auto Clumped Platelets Not Reportable Plt Clumps, EDTA Not Reportable Large Platelets Not Reportable Giant Platelets Not Reportable Platelet Satelliting Not Reportable Plt Morphology Comment Not Reportable RBC Morphology Normal Dimorphic RBCs Not Reportable Polychromasia Not Reportable Hypochromasia Not Reportable Poikilocytosis Not Reportable Anisocytosis Not Reportable Microcytosis Not Reportable Macrocytosis Not Reportable Spherocytes Not Reportable Pappenheimer Bodies Not Reportable Sickle Cells Not Reportable Target Cells Not Reportable Tear Drop Cells Not Reportable Ovalocytes Not Reportable Helmet Cells Not Reportable [place] Bodies Not Reportable [place] Rings Not Reportable [place] Cells Not Reportable Bite Cells Not Reportable Crenated Cell Not Reportable Elliptocytes Not Reportable Acanthocytes (Spur) Not Reportable Rouleaux Not Reportable Hemoglobin C Crystals Not Reportable Schistocytes Not Reportable Malaria parasites Not Reportable Wes Bodies Not Reportable Hem Pathologist Commnt No Sodium 142 (137-145) mmol/L Potassium 4.0 (3.6-5.0) mmol/L Chloride 104.7 (98-107) mmol/L Carbon Dioxide 21 L (22-30) mmol/L Anion Gap 20 mmol/L BUN 12 (7-17) mg/dL Creatinine 0.7 (0.6-1.2) mg/dL Estimated GFR > 60 ml/min BUN/Creatinine Ratio 17 % Glucose 135 H (65-100) mg/dL Calcium 9.5 (8.4-10.2) mg/dL Total Bilirubin 0.30 (0.1-1.2) mg/dL AST 26 (5-40) units/L ALT 24 (7-56) units/L Alkaline Phosphatase 64 (35-129) units/L Total Protein 7.4 (6.3-8.2) g/dL Albumin 4.4 (3.9-5) g/dL Albumin/Globulin Ratio 1.5 % Lipase 13 (13-60) units/L Urine Color Red (Yellow) Urine Turbidity Clear (Clear) Urine pH 6.0 (5.0-7.0) Ur Specific [place] 1.050 H (1.003-1.030) Urine Protein 100 mg/dl (Negative) mg/dL Urine Glucose (UA) Neg (Negative) mg/dL Urine Ketones Tr (Negative) mg/dL Urine Blood Lg (Negative) Urine Nitrite Neg (Negative) Urine Bilirubin Neg (Negative) Urine Urobilinogen < 2.0 (<2.0) mg/dL Ur Leukocyte Esterase Neg (Negative) Urine WBC (Auto) 33.0 H (0.0-6.0) /HPF Urine RBC (Auto) 164.0 (0.0-6.0) /HPF U Epithel Cells (Auto) 4.0 (0-13.0) /HPF Urine Mucus Few /HPF - Radiology Data Radiology results: report reviewed CT ABDOMEN AND PELVIS WITH CONTRAST INDICATION: abd pain, n/v, elevated WBC CONTRAST: 100 cc Omnipaque 300 IV COMPARISON: None available. All CT scans at this location are performed using CT dose reduction for ALARA by means of automated exposure control. FINDINGS: Visualized lung bases are clear. No pneumoperitoneum is seen. No free fluid is noted. No lymphadenopathy is seen. No urinary or bowel obstructive changes are noted. No masses are seen. The extreme upper portion of the liver is excluded. Inflammatory changes are obvi ous. Appendix appears within normal limits. Physiologic type bilateral ovarian cysts are seen. The appearance of much of the colon probably relates to lack of distention though this makes evaluation difficult and mild colitis cannot be excluded. IMPRESSION: No definite acute abnormalities are seen. See comments above concerning the colon. Signer Name: Solo Velasquez MD Signed: 08/30/2020 3:04 PM Workstation Name: [id number] Transcribed By: RAYO Dictated By: Solo Velasquez MD Electronically Authenticated By: Solo Velasquez MD Signed Date/Time: 08/30/20 1504 DD/ 1459 TD/TT: - Medical Decision Making Patient is a 29-year-old female presents emergency room with complaints of generalized abdominal cramping that began 2 days ago. She has associated nausea vomiting. She states that she is unable to tolerate p.o. intake. Patient states that she has a past medical history of endometriosis and has not seen a MORTGAGE PROFESSIONAL in 3 years. She attributes her symptoms to her endometriosis. She denies any diarrhea, fever, hematochezia, hematemesis, melena, pus in the stool, dysuria, urinary frequency, dark urine, odor to the urine, vaginal discharge or irritation. She states that she is having normal bowel movements and had a bowel movement yesterday. She denies any other past medical history. She has an allergy to Augmentin and budesonide. She states her last menstrual cycle August 07. Initial vitals with elevated blood pressure which improved to normal upon repeat. mild generalized abdominal tenderness on exam, no guarding, no rebound, no rigidity, normal bowel sounds, no peritoneal signs. Labs significant for elevated white blood cell count of 16.9. Patient had a hCG test yesterday which was negative. UA shows many red blood cells, there are some white blood cells present but no leukocyte esterase or nitrites, she is not having urinary symptoms, do not suspect UTI. CT abd pelvis with IV contrast: Visualized lung bases are clear. No pneumoperitoneum is seen. No free fluid is noted. No lymphadenopathy is seen. No urinary or bowel obstructive changes are noted. No masses are seen. The extreme upper portion of the liver is excluded. Inflammatory changes are obvious. Appendix appears within normal limits. Physiologic type bilateral ovarian cysts are seen. The appearance of much of the colon probably relates to lack of distention though this makes evaluation difficult and mild colitis cannot be excluded. Patient will be treated for a mild colitis given that she has abdominal pain and nausea vomiting. An IV fluids, pain medication, antiemetics and symptoms improved and patient was feel ing much better ready to go home. Patient was able to tolerate p.o. intake. Discussed all results with patient and answered questions. Patient given prescription for ciprofloxacin, Flagyl, Zofran, Tylenol with codeine. Advised patient Please take medication as prescribed. Increase your water intake. Do not drive or operate machinery while taking pain medication. Eat a bland liquid diet so advance your diet as tolerated. Follow-up with a primary care doctor. Follow-up with a GI doctor. Follow-up with MORTGAGE PROFESSIONAL. Return to emergency room for any new or worsening symptoms. - Differential Diagnosis Appendicitis, colitis, diverticulitis, UTI, fibroids, endometriosis, gastri Critical care attestation.: If time is entered above; I have spent that time in minutes in the direct care of this critically ill patient, excluding procedure time. ED Disposition Clinical Impression: Colitis Abdominal pain Qualifiers: Abdominal location: generalized Qualified Code(s): R10.84 - Generalized abdominal pain Nausea & vomiting Qualifiers: Vomiting type: unspecified Vomiting Intractability: non-intractable Qualified Code(s): R11.2 - Nausea with vomiting, unspecified Ovarian cyst Qualifiers: Laterality: bilateral Qualified Code(s): N83.201 - Unspecified ovarian cyst, right side Disposition: - TO HOME OR SELFCARE Is pt being admited?: No Does the pt Need Aspirin: No Condition: Stable Instructions: Ovarian Cyst (ED), Abdominal Pain (ED), Infectious Colitis (ED) Additional Instructions: Please take medication as prescribed. Increase your water intake. Do not drive or operate machinery while taking pain medication. Eat a bland liquid diet so advance your diet as tolerated. Follow-up with a primary care doctor. Follow- up with a GI doctor. Follow-up with MORTGAGE PROFESSIONAL. Return to emergency room for any new or worsening symptoms. Prescriptions: Ciprofloxacin HCl [Ciprofloxacin TAB] 500 mg PO BID 7 Days #14 tab metroNIDAZOLE [Flagyl] 500 mg PO BID 7 Days #14 tab Promethazine [Phenergan] 25 mg PO Q8HR PRN #7 tab PRN Reason: Nausea And Vomiting Acetaminophen/Codeine [Tylenol /Codeine # 3 tab] 1 tab PO Q6H PRN #7 tab PRN Reason: Pain , Severe (7-10) Referrals: JOSE MARTINEZ MD [Primary Care Provider] - 2-3 Days JONATAN MARTINEZ MD [Staff Physician] - 3-5 Days [facility] [Provider Group] - 3-5 Days [facility] [Provider Group] - 3-5 Days AGUSTINA KELLY MD [Staff Physician] - 3-5 Days Time of Disposition: 17:00 Print Language: LITHUANIAN
[2020-08-30 11:16] LABS: Hematocrit 37.8 % (30.3-42.9); Hemoglobin 12.7 gm/dl (10.1-14.3); Mean Corpuscular HGB Conc 34 % (30-34); Mean Corpuscular Volume 88 fl (79-97); Platelet Count 327 K/mm3 (140-440); Red Blood Count 4.31 M/mm3 (3.65-5.03); Red Cell Distribution Width 14.1 % (13.2-15.2)
[2020-08-30 11:38] LABS: Alanine Aminotransferase 24 units/L (7-56); Albumin 4.4 g/dL (3.9-5); BUN/Creatinine Ratio 17; Blood Urea Nitrogen 12 mg/dL (7-17); Calcium 9.5 mg/dL (8.4-10.2); Hemolysis Index 30
[2020-08-30 12:13] LABS: Basophils % (Manual) 0 % (0.0-1.8); Eosinophils % (Manual) 0 % (0.0-4.3); Total Cells Counted 100
[2020-08-30 12:14] LABS: Platelet Estimate Consistent w Auto; RBC Morphology Normal
[2020-08-30] MEDS ORDERED: METOCLOPRAMIDE 10 MG/2 ML INJ IV ONE (13:48)
--- NOTE | 2020-08-30 15:09 | Cat Scan Report ---
CT ABDOMEN AND PELVIS WITH CONTRAST INDICATION: abd pain, n/v, elevated WBC CONTRAST: 100 cc Omnipaque 300 IV COMPARISON: None available. All CT scans at this location are performed using CT dose reduction for ALARA by means of automated e xposure control. FINDINGS: Visualized lung bases are clear. No pneumoperitoneum is seen. No free fluid is noted. No ly mphadenopathy is seen. No urinary or bowel obstructive changes are noted. No masses are seen. The ext piero upper portion of the liver is excluded. Inflammatory changes are obvious. Appendix appears withi n normal limits. Physiologic type bilateral ovarian cysts are seen. The appearance of much of the col on probably relates to lack of distention though this makes evaluation difficult and mild colitis can not be excluded. IMPRESSION: No definite acute abnormalities are seen. See comments above concerning the colon. Signer Name: Solo Velasquez MD Signed: 08/30/2020 3:04 PM Workstation Name: [id number]
[2020-08-30 16:49] LABS: Bilirubin,Urine NEG (Negative); Blood,Urine LG (Negative); Color,Urine Red (Yellow); Mucus,Urine FEW /HPF; Urobilinogen,Urine < 2.0 mg/dL (<2.0)
[2020-08-30] MEDS ORDERED: PROCHLORPERAZINE EDISYLATE 10 MG/2 ML VIAL IV ONE (17:06)
[2020-08-30 18:47] VITALS: BP 140/82
== END 2020-08-30 18:46 | disposition home or self-care (01) ==
LOC: ED 09:05
DX: K52.9 Noninfective gastroenteritis and colitis, unspecified (principal); N83.209 Unspecified ovarian cyst, unspecified side; R10.84 Generalized abdominal pain; R11.2 Nausea with vomiting, unspecified; J45.909 Unspecified asthma, uncomplicated; F17.200 Nicotine dependence, unspecified, uncomplicated; F12.10 Cannabis abuse, uncomplicated; Z79.1 Long term (current) use of non-steroidal anti-inflammatories (NSAID); Z79.2 Long term (current) use of antibiotics; Z79.899 Other long term (current) drug therapy; Z88.1 Allergy status to other antibiotic agents; Z88.8 Allergy status to other drugs, medicaments and biological substances
CPT/HCPCS: 36415; 74177; 80053; 81001; 83690; 85007; 85025; 87076; 87086; 87186; 96361; 96374; 96375; 96376; 99284; J1200; J1885; J2405; J2765; J7030; Q9967; J0780

== ENCOUNTER 2021-05-25 09:49 | Emergency (ER) | payer SELFPAY ==
[2021-05-25] MEDS ORDERED: ONDANSETRON 4 MG/2 ML INJ IV ONE ×2 (10:14→13:23)
[2021-05-25] MEDS ORDERED: MORPHINE 4 MG/1 ML INJ IV ONE (10:14)
[2021-05-25] MEDS ORDERED: SODIUM CHLORIDE 0.9% 1000 ML 1,000 ML IV ONE (10:14)
--- NOTE | 2021-05-25 10:16 | Emergency Department Report ---
ED Abdominal Pain HPI - General Chief Complaint: Nausea/Vomiting/Diarrhea Stated Complaint: NAUSEA/VOMITING Time Seen by Provider: 05/25/21 10:10 Source: patient Mode of arrival: Ambulatory Limitations: No Limitations - History of Present Illness Initial Comments: 30-year-old female who denies any past medical history presents to the ER today with complaints of nausea, vomiting and epigastric abdominal pain. Patient states that her pain started last night while she was eating at a [place] restaurant. Patient states that the pain has been constant, nonradiating getting worse since it started. She reports multiple episodes of nausea and vomiting since her symptoms started. She states that the emesis was initially food but then started vomiting liquid and now is bilious. She reports no coffee-ground emesis hematemesis. She denies any associated diarrhea or constipation. She states that she has had a bowel movement yesterday was normal. She does admit that she had 1 cup of a mixed drink yesterday, but she states that she could not finish drinking due to her pain. She denies any fever or chills. She denies any recent travel. She denies any ill contacts. MD Complaint: abdominal pain, other (nausea and vomiting ) -: Sudden (last night ) - Related Data Previous Rx's Medication Instructions Recorded Last Taken Type Famotidine [Pepcid] 40 mg PO QHS #30 tablet 05/25/21 Unknown Rx Ondansetron [Zofran Odt] 4 mg PO Q8HR PRN #12 tab.rapdis 05/25/21 Unknown Rx Allergies Allergy/AdvReac Type Severity Reaction Status Date / Time amoxicillin trihydrate Allergy Unknown Verified 11/28/16 16:16 [From Augmentin] budesonide [From Pulmicort] Allergy Unknown Verified 11/28/16 16:16 potassium clavulanate Allergy Unknown Verified 11/28/16 16:16 [From Augmentin] ED Review of Systems ROS: Stated complaint: NAUSEA/VOMITING Other details as noted in HPI Comment: All other systems reviewed and negative Constitutional: denies: chills, fever Eyes: denies: eye pain, eye discharge, vision change ENT: denies: ear pain, throat pain, dental pain, hearing loss, epistaxis, congestion Respiratory: denies: cough, orthopnea, shortness of breath, SOB with exertion, SOB at rest, wheezing Cardiovascular: denies: chest pain, palpitations, dyspnea on exertion, edema, syncope, paroxysmal nocturnal dyspnea Endocrine: no symptoms reported Gastrointestinal: abdominal pain, nausea, vomiting. denies: diarrhea, constipation, hematemesis, melena, hematochezia Genitourinary: denies: urgency, dysuria, frequency, hematuria, discharge, abnormal menses, dyspareunia Musculoskeletal: denies: back pain, joint swelling, arthralgia Skin: denies: rash, lesions, change in color, change in hair/nails, pruritus Neurological: denies: headache, weakness, numbness, paresthesias, confusion, abnormal gait, vertigo Psychiatric: denies: anxiety, depression, auditory hallucinations, visual hallucinations, homicidal thoughts, suicidal thoughts Hematological/Lymphatic: denies: easy bleeding, easy bruising ED Past Medical Hx - Past Medical History Previous Medical History?: Yes Hx Hypertension: No Hx Diabetes: No Hx Deep Vein Thrombosis: No Hx Renal Disease: No Hx Sickle Cell Disease: No Hx Seizures: No Hx Asthma: Yes Hx COPD: No Hx HIV: No Additional medical history: endometriosis, ovarian cyst - Surgical History Past Surgical History?: No - Social History Smoking Status: Current Some Day Smoker Substance Use Type: Alcohol, Marijuana - Medications Home Medications: Home Medications Medication Instructions Recorded Confirmed Last Taken Type Famotidine [Pepcid] 40 mg PO QHS #30 tablet 05/25/21 Unknown Rx Ondansetron [Zofran Odt] 4 mg PO Q8HR PRN #12 tab.rapdis 05/25/21 Unknown Rx ED Physical Exam - General Limitations: No Limitations General appearance: alert, in distress (Patient appears uncomfortable, and is actively vomiting in the room) - Head Head exam: Present: atraumatic, normocephalic, normal inspection - Eye Eye exam: Present: normal appearance, PERRL, EOMI Pupils: Present: normal accommodation - ENT ENT exam: Present: mucous membranes dry - Neck Neck exam: Present: normal inspection, full ROM. Absent: meningismus - Respiratory Respiratory exam: Present: normal lung sounds bilaterally. Absent: respiratory distress, wheezes, rales, rhonchi - Cardiovascular Cardiovascular Exam: Present: regular rate, normal rhythm, normal heart sounds - GI/Abdominal GI/Abdominal exam: Present: soft, tenderness (Tenderness to palpation e pigastric, right upper quadrant and left lower quadrant some mild guarding), guarding. Absent: distended, rebound, rigid - Neurological Exam Neurological exam: Present: alert, oriented X3, CN II-XII intact, normal gait - Skin Skin exam: Present: intact ED Course Vital Signs 05/25/21 05/25/21 05/25/21 09:57 10:32 13:46 Temperature 98.7 F Pulse Rate 99 H 59 L Respiratory 22 20 Rate Blood Pressure 155/89 139/81 O2 Sat by Pulse 100 99 Oximetry ED Medical Decision Making - Lab Data Result diagrams: 05/25/21 10:27 05/25/21 10:27 - Radiology Data Radiology results: report reviewed Patient: JERRY WILKINSON MR#: [id number] : 1990 Acct:[id number] Age/Sex: 30 / F ADM Date: 05/25/21 Loc: ED Attending Dr: Ordering Physician: JORDAN CURRY Date of Service: 05/25/21 Procedure(s): CT abdomen pelvis w con Accession Number(s): [id number] cc: JORDAN CURRY Partial CT ABDOMEN AND PELVIS WITH CONTRAST INDICATION / CLINICAL INFORMATION: Epigastric pain with nausea and vomiting. TECHNIQUE: Axial CT images were obtained through the abdomen and pelvis after Omnipaque 300, 100 [address] scans at this location are performed using CT dose reduction for ALARA by means of automated exposure control. COMPARISON: None available. FINDINGS: LOWER CHEST: No significant abnormality. LIVER: No significant abnormality. GALLBLADDER: No significant abnormality. BILE DUCTS: No significant abnormality. PANCREAS: No significant abnormality. SPLEEN: No significant abnormality. ADRENALS: No significant abnormality. RIGHT KIDNEY / URETER: No significant abnormality. LEFT KIDNEY / URETER: No significant abnormality. STOMACH / SMALL BOWEL: No significant abnormality. COLON: No significant abnormality. APPENDIX: No significant abnormality. PERITONEUM: No free fluid. No free air. No fluid collection. LYMPH NODES: No significant adenopathy. VASCULAR STRUCTURES: No significant abnormality. URINARY BLADDER: No significant abnormality. REPRODUCTIVE ORGANS: No significant abnormality. ADDITIONAL FINDINGS: None. SKELETAL SYSTEM: No significant abnormality. IMPRESSION: No acute abnormality. Signer Name: Ty Stanton MD Signed: 05/25/2021 1:03 PM Workstation Name: [id number] Transcribed By: ES Dictated By: Ty Stanton MD Electronically Authenticated By: Ty Stanton MD Signed Date/Time: 05/25/21 1303 DD/ 1259 TD/TT: - Medical Decision Making Labs/CT abdomen and pelvis reviewed, nothing acute on work up today. 1323: Patient states she is still nausea but pain has improved. Will give another dose zofran and give pepcid followed by PO challenge 1431: Patient tolerated p.o. fluid challenge without any vomiting. She is resting the bed comfortably and does not appear to be in any acute distress.The patient does not have uncontrollable pain, intractable vomiting or other significant symptoms. The history, exam, diagnostic testing and current condition do not suggest acute appendicitis, bowel obstruction, acute cholecystitis, bowel perforation, major GI bleed, severe diverticulitis, abdominal aortic aneurysm, mesenteric ischemia, volvulus, sepsis or other significant pathology to warrant further testing, continued ED treatment, admission or surgical evaluation at this point. Her vital signs have been stable. Discussed imaging results, lab results, suspected diagnosis and treatment plan with patient. Recommend close follow-up with primary care doctor and or GI specialist if symptoms persist. Patient expressed understanding of instructions and agree with plan. Patient was stable at time of discharge. Critical care attestation.: If time is entered above; I have spent that time in minutes in the direct care of this critically ill patient, excluding procedure time. ED Disposition Clinical Impression: Epigastric abdominal pain, Nausea and vomiting Disposition: DC-01 TO HOME OR SELFCARE Is pt being admited?: No Does the pt Need Aspirin: No Condition: Stable Instructions: Gastritis, Adult, [id number], Abdominal Pain, Adult, [id number], Nausea and Vomiting, Adult Additional Instructions: Take the pepcid and zofran as prescribed. Drink lots of water. I recommend trying to avoid alcohol, fried fatty greasy foods as well as acidic foods and caffeine as this may be contributing to pain. I recommend that she follow-up with the primary care doctor and or GI specialist on her discharge instructions. Return to the ER if your symptoms worsens or changes in any way. Prescriptions: Famotidine [Pepcid] 40 mg PO QHS #30 tablet Ondansetron [Zofran Odt] 4 mg PO Q8HR PRN #12 tab.rapdis PRN Reason: Nausea And Vomiting Referrals: JONATAN MARTINEZ MD [Staff Physician] - 3-5 Days [facility] [Provider Group] - 3-5 Days Forms: Work/School Release Form(ED) Time of Disposition: 14:23
[2021-05-25 11:03] LABS: Basophils % (Auto) 0.3 % (0.0-1.8); Hematocrit 39.5 % (30.3-42.9); Hemoglobin 13.4 gm/dl (10.1-14.3); Lymphocytes # (Auto) 0.8 K/mm3 (1.2-5.4); Lymphocytes % (Auto) 7.2 % (13.4-35.0); Mean Corpuscular HGB Conc 34 % (30-34); Mean Corpuscular Volume 88 fl (79-97); Monocytes # (Auto) 0.3 K/mm3 (0.0-0.8); Platelet Count 349 K/mm3 (140-440); Red Blood Count 4.47 M/mm3 (3.65-5.03); Red Cell Distribution Width 14.3 % (13.2-15.2)
[2021-05-25 11:55] LABS: Bilirubin,Urine NEG (Negative); Blood,Urine NEG (Negative); Color,Urine Yellow (Yellow); Mucus,Urine 3+ /HPF; Urobilinogen,Urine < 2.0 mg/dL (<2.0)
[2021-05-25 11:56] LABS: Protein,Urine >500 mg/dL (Negative)
[2021-05-25 11:57] LABS: HCG Qualitative,Urine Negative (Negative)
[2021-05-25 12:10] LABS: Alanine Aminotransferase 18 units/L (7-56); Albumin 4.7 g/dL (3.9-5); BUN/Creatinine Ratio 13; Blood Urea Nitrogen 10 mg/dL (7-17); Calcium 10.1 mg/dL (8.4-10.2); Hemolysis Index 3
--- NOTE | 2021-05-25 13:07 | Cat Scan Report ---
Partial CT ABDOMEN AND PELVIS WITH CONTRAST INDICATION / CLINICAL INFORMATION: Epigastric pain with nausea and vomiting. TECHNIQUE: Axial CT images were obtained through the abdomen and pelvis after Omnipaque 300, 100 cc I V contrast. All CT scans at this location are performed using CT dose reduction for ALARA by means o f automated exposure control. COMPARISON: None available. FINDINGS: LOWER CHEST: No significant abnormality. LIVER: No significant abnormality. GALLBLADDER: No significant abnormality. BILE DUCTS: No significant abnormality. PANCREAS: No significant abnormality. SPLEEN: No significant abnormality. ADRENALS: No significant abnormality. RIGHT KIDNEY / URETER: No significant abnormality. LEFT KIDNEY / URETER: No significant abnormality. STOMACH / SMALL BOWEL: No significant abnormality. COLON: No significant abnormality. APPENDIX: No significant abnormality. PERITONEUM: No free fluid. No free air. No fluid collection. LYMPH NODES: No significant adenopathy. VASCULAR STRUCTURES: No significant abnormality. URINARY BLADDER: No significant abnormality. REPRODUCTIVE ORGANS: No significant abnormality. ADDITIONAL FINDINGS: None. SKELETAL SYSTEM: No significant abnormality. IMPRESSION: No acute abnormality. Signer Name: Ty Stanton MD Signed: 05/25/2021 1:03 PM Workstation Name: [id number]
[2021-05-25] MEDS ORDERED: FAMOTIDINE 20 MG TAB PO ONE (13:23)
[2021-05-25 13:49] VITALS: BP 139/81
== END 2021-05-25 14:53 | disposition home or self-care (01) ==
LOC: ED 09:49
DX: R10.13 Epigastric pain (principal); R11.2 Nausea with vomiting, unspecified; J45.909 Unspecified asthma, uncomplicated; Z72.89 Other problems related to lifestyle; Z88.8 Allergy status to other drugs, medicaments and biological substances; Z79.899 Other long term (current) drug therapy
CPT/HCPCS: 36415; 74177; 80053; 81001; 81025; 83690; 83735; 85025; 96361; 96374; 96375; 96376; 99284; J2270; J2405; J7030; Q9967